=== PATIENT | female | born 1990 | race African-American/Black ===

== ENCOUNTER 2021-02-15 06:12 | Emergency (ER) | payer OTHER ==
[~2021-02-15] VITALS: Ht 162.6 cm; Wt 76.4 kg
--- NOTE | ~2021-02-15 | EMS ---
[address] [address] EMS Patient Care Report Name: SULEIMAN JOHN Room #: DEP AVINASH Merrill#: [id number] Admission: 02/15/21 Attend Phys: Discharge: 02/15/21 Date of : [birth year] Report #: [id number] THIS REPORT FOR: //name// Report Transmitted: 02/16/2021 11:29 EMS Care Summary [place], [place]/[facility] Incident [id number] @ 02/15/2021 05:46 Incident Location [address] [place] [address] Patient SULEIMAN JOHN Female, 30 Years 1990 Patient Address [address] [place] [address] Patient History None Reported, Patient Allergies No known allergies, Patient Medications None Reported, Chief Complaint URINATED ON HERSELF Disposition Transported No Lights/[place] Dispatch Reason Overdose/Poisoning/Ingestion Transported To [facility] Narrative MEDIC 43 DISPATCHED TO A [employer] [facility] ON AN OVERDOSE. PATIENT SAYS SHE NEEDS HELP. PD STATES SHE MANTIONED PCP BUT SHE DENIED USAGE TO EMS WHEN ASKED. [address] [address] EMS Patient Care Report Name: ALVAROSULEIMAN Room #: DEP BárbaraTroy#: [id number] Admission: 02/15/21 Attend Phys: Discharge: 02/15/21 Date of : [birth year] Report #: [id number] UPON EMS ARRIVAL PATIENT WAS FOUND WITH PD. PATIENT HAD URINATED AND SPIT ON HERSELF. PATIENT WAS ASSISTED INTO THE AMBULANCE AND SAT ON THE STRETCHER WHERE SHE WAS BELTED IN AND VITALS WERE ASSESSED. VITALS WERE MONITORED EN ROUTE TO [facility] WHERE CARE WAS TRANSFERRED TO RECEIVING RN. EMS BACK IN SERVICE WITH NO FURTHER INCIDENTS. Initial Vitals @05:56P: 77,R: 16,BP: 129/92,Pain: 0/10,GCS: 14,Glucose: 105,SpO2: 99,Revised Trauma: 12, @05:57P: 84,R: 16,BP: 132/94,Pain: 0/10,GCS: 14,CO: 0,SpO2: 96,Revised Trauma: 12, Assessments @06:07MENTAL:Place Oriented,Time Oriented,Event Oriented,Confused,Person Oriented,SKIN:HEENT:Head/Face: Drainage,Neck/Airway: No Abnormalities,LUNG SOUNDS:General: No Abnormalities,ABDOMEN:General: No Abnormalities,PELVIS//GI:EXTREMITIES:Left Arm: No Abnormalities,Right Arm: No Abnormalities,Left Leg: No Abnormalities,Right Leg: No Abnormalities,PULSE:NEURO:Abnormal Gait,Slurred Speech, Impression Alcohol use Procedures @06:07 ALS Assessment Response: UnchangedSucceeded @06:07 BLS Assessment Response: Unchanged Timeline 05:46,Call Received 05:46,Dispatch Notified 05:46,Dispatched 05:48,En Route 05:51,On Scene 05:52,At Patient 05:56,BP: 129/92 M,PULSE: 77,RR: 16 R,SPO2: 99 Ox,ETCO2: ,B,PAIN: 0,GCS: 14, 05:57,BP: 132/94 M,PULSE: 84,RR: 16 R,SPO2: 96 Ox,ETCO2: ,BG: ,PAIN: 0,GCS: 14, 05:59,Depart Scene 06:07,ALS Assessment,Response: UnchangedSucceeded, 06:07,BLS Assessment,Response: Unchanged 06:08,At Destination 06:26,Call Closed Disclaimer v1.1 Copyright 2020 [employer] [facility] [address] [place] [address] EMS Patient Care Report Name: [facility] Room #: BRIDGETTE Merrill#: [id number] Admission: 02/15/21 Attend Phys: Discharge: 02/15/21 Date of : [birth year] Report #: [id number] This EMS Care Summary contains data elements from the applicable legal record (which may be displayed differently). It is designed to provide pertinent information for the following purposes: continuity of care, clinical quality, and state data reporting. The complete legal record is available to ED staff and administrators of the receiving hospital in [facility] Patient Tracker. All data is provided "as is."
[2021-02-15 06:57] LABS: HEMATOCRIT 37.8 % (37.0-47.0); HEMOGLOBIN 12.2 gm/dL (12.0-15.0); MCH 28.8 pg (26.0-34.0); MCHC 32.2 g/dL (28.0-37.0); MCV 89.5 fL (80.0-100.0); RBC 4.23 mil/uL (4.20-5.00); RDW 15.2 % (10.5-14.5); WBC 8.3 thou/uL (4.0-11.0)
[2021-02-15 07:13] LABS: ANION GAP 10 mmol/L (7-16); BUN 17 mg/dL (7-18); CALCIUM 8.7 mg/dL (8.5-10.1); CHLORIDE 102 mmol/L (98-107); CO2 26 mmol/L (21-32); GLUCOSE 105 mg/dL (74-106); POTASSIUM 4.2 mmol/L (3.5-5.1); SODIUM 138 mmol/L (136-145)
[2021-02-15 07:20] LABS: ALBUMIN 3.8 g/dL (3.4-5.0); SALICYLATE < 2.8 mg/dL (2.8-20.0); SGOT 25 U/L (15-37); SGPT 30 U/L (14-59); TOTAL BILIRUBIN 0.5 mg/dL (0.2-1.0); TOTAL PROTEIN 8.5 g/dL (6.4-8.2)
[2021-02-15 10:07] LABS: AMP/METHAMP Negative (Negative); BARBITURATES Negative (Negative); BENZODIAZEPINES Negative (Negative); COCAINE Negative (Negative); METHADONE Negative (Negative); OPIATES Negative (Negative); PCP POSITIVE (Negative)
[2021-02-15 12:35] VITALS: BP 128/80
== END 2021-02-15 12:36 | disposition home or self-care (01) ==
LOC: ER 06:12
PROVIDERS: Emergency Medicine
DX: F16.10 Hallucinogen abuse, uncomplicated (principal)